=== PATIENT | male | born 1945 | race Caucasian/White ===

== ENCOUNTER 2024-12-01 13:16 | Emergency (ER) | payer OTHER, MEDICARE, MEDICAID ==
[~2024-12-01] VITALS: Ht 170.2 cm; Wt 63.0 kg
[2024-12-01] MEDS ORDERED: CORRECTOL5 MG PO (13:44)
[2024-12-01] MEDS ORDERED: LAMOTRIGINE25 MG PO (13:45)
[2024-12-01] MEDS ORDERED: ARICEPT10 MG PO (13:45)
[2024-12-01] MEDS ORDERED: MILK OF MA400 MG/5 M PO (13:46)
[2024-12-01] MEDS ORDERED: LISINOPRIL10 MG PO (13:46)
[2024-12-01] MEDS ORDERED: LOPERAMIDE2 MG PO (13:46)
[2024-12-01] MEDS ORDERED: TYLENOL325 MG PO (13:47)
[2024-12-01 14:10] LABS: BASOPHILS 0.8 % (0.2-1.2); EOSINOPHILS 1.4 % (0.8-7.0); HEMATOCRIT 43.7 % (40.1-51.0); HEMOGLOBIN 14.3 g/dL (13.7-17.5); LYMPHOCYTES 15.2 % (21.8-53.1); MCH 28.9 PG (25.7-32.2); MCHC 32.7 g/dL (32.3-36.5); MCV 88.3 fL (79.0-92.2); MONOCYTES 8.2 % (5.3-12.2); NEUTROPHILS 74.1 % (34.0-67.9); PLATELET COUNT 160 K/uL (163-337); RBC 4.95 M/uL (4.63-6.08)
[2024-12-01 14:28] LABS: ALBUMIN 3.9 g/dL (3.4-5.0); ALBUMIN/GLOBULIN RATIO 1.15 (1.1-2.4); ANION GAP 13.4 (7-21); BILIRUBIN, TOTAL 0.6 mg/dL (0.2-1.0); BUN/CREATININE RATIO 10.55 (6.0-28.6); CALCIUM 9.1 mg/dL (8.5-10.1); CREATININE, SERUM 1.61 mg/dL (0.70-1.30); POTASSIUM 4.4 mmol/L (3.5-5.1); PROTEIN, TOTAL 7.3 g/dL (6.4-8.2)
[2024-12-01] MEDS ORDERED: OLANZapine 10 MG TABDIS PO ONE (15:15)
[2024-12-01] MEDS ORDERED: ZYPREXA20 MG PO (15:21)
[2024-12-01 15:30] VITALS: BP 171/104
--- NOTE | 2024-12-02 19:35 | EKG ---
[facility] [address] [facility] [place], [place] [address] Signed Normal sinus rhythm Normal ECG Confirmed by Cosme Ayala DO ([id number]) on 12/02/2024 7:35:05 PM Electronically Signed By: COSME AYALA DO 12/02/241934 PATIENT NAME: WILLEM OBREGON [facility] [place] Electrocardiogram DATE OF : 49 PHYSICIAN: COSME AYALA DO REPORT #: [id number] REPORT IS CONFIDENTIAL AND NOT TO BE RELEASED WITHOUT AUTHORIZATION
== END 2024-12-01 15:30 | disposition home or self-care (01) ==
LOC: ED 13:16
PROVIDERS: Emergency Medicine
DX: F03.90 Unspecified dementia, unspecified severity, without behavioral disturbance, psychotic disturbance, mood disturbance, and anxiety (principal); F05 Delirium due to known physiological condition; I10 Essential (primary) hypertension; E78.5 Hyperlipidemia, unspecified; Z79.899 Other long term (current) drug therapy
CPT/HCPCS: 36415; 70450; 80053; 84484; 85025; 93005; 93010; 99284-25; A9270